=== PATIENT | male | born 1960 | race Caucasian/White ===

== ENCOUNTER → 2017-07-11 | Outpatient (CLI) | payer BC ==
[~2017-07-11] MED LIST: ATR80PT PO; CELE-1 PO; CITA-139 PO; GLY5 PO; KET10 PO; MECL25TA9 PO; METF-410 PO; METF-420 PO; OXYC-865 PO; PIOG45TA18 PO; SAXA1TBM6 PO; SILD20TA PO; SIMV-1 PO; TADA10TA14 PO; VALS1TAB61 PO; VALS1TAB63 PO; [UNRECOGNIZED DRUG - OTHER]
[2017-07-11 08:37] LABS: PLATELET COUNT, AUTOMATED 229 K/uL (150-450)
[2017-07-11 10:25] LABS: LDL CHOLESTEROL 58 mg/dl
== END ==
LOC: LAB 08:08
PROVIDERS: ATTEND Internal Medicine
DX: Z12.5 Encounter for screening for malignant neoplasm of prostate (principal); E11.9 Type 2 diabetes mellitus without complications; H81.10 Benign paroxysmal vertigo, unspecified ear; E88.81 Metabolic syndrome and other insulin resistance; I10 Essential (primary) hypertension; E78.5 Hyperlipidemia, unspecified; I95.1 Orthostatic hypotension
CPT/HCPCS: 36415; 81001; 82040; 82247; 82310; 82374; 82435; 82465; 82565; 82947; 83036; 83718; 84075; 84132; 84153; 84155; 84295; 84450; 84460; 84478; 84520; 85025

== ENCOUNTER → 2018-03-05 | Outpatient (CLI) | payer BC ==
[~2018-03-05] MED LIST changes: +AMOX-559 PO; -CITA-139 PO; +CITA-145 PO; +LOSA-51 PO; -METF-410 PO; +METF-450 PO; +METF-452 PO; +PIOG30TA34 PO; +PIOG45TA65 PO; +PNEI IM
[2018-03-05 07:51] LABS: PLATELET COUNT, AUTOMATED 255 K/uL (150-450)
[2018-03-05 09:10] LABS: LDL CHOLESTEROL 62 mg/dl
== END ==
LOC: LAB 07:29
PROVIDERS: ATTEND Internal Medicine
DX: E11.9 Type 2 diabetes mellitus without complications (principal); E78.5 Hyperlipidemia, unspecified; I10 Essential (primary) hypertension
CPT/HCPCS: 36415; 81001; 82040; 82043; 82247; 82310; 82374; 82435; 82465; 82565; 82947; 83036; 83718; 84075; 84132; 84155; 84295; 84443; 84450; 84460; 84478; 84520; 85025

== ENCOUNTER → 2018-04-01 | Outpatient (CLI) | payer BC ==
[~2018-04-01] MED LIST changes: +GLIP-154 PO; +SAXA5TAB4 PO
--- NOTE | 2018-04-01 16:02 | EKG ---
FACILITY: [facility] PATIENT NAME: EVELYN ANGLIN : [id number] MR: [id number] V: [id number] EXAM DATE: ORDERING PHYSICIAN: KIRSTEN WATSON TECHNOLOGIST: SILVERIO Test Reason : PRE OP Blood Pressure : / mmHG Vent. Rate : 068 BPM Atrial Rate : 068 BPM P-R Int : 152 ms QRS Dur : 102 ms QT Int : 410 ms P-R-T Axes : 026 -46 002 degrees QTc Int : 435 ms Normal sinus rhythm Left anterior fascicular block Inferior infarct , age undetermined Abnormal ECG When compared with ECG of 19-JAN-2013 23:37, Inferior infarct is now present Confirmed by KIRSTEN GARCIA ([id number]) on 04/01/2018 4:37:43 PM Referred By: WALTER Confirmed By:KIRSTEN GARCIA
== END ==
LOC: RESP 15:21
PROVIDERS: ATTEND Anesthesiology
DX: Z01.810 Encounter for preprocedural cardiovascular examination (principal); M66.241 Spontaneous rupture of extensor tendons, right hand; R94.31 Abnormal electrocardiogram [ECG] [EKG]
CPT/HCPCS: 93005